=== PATIENT | male | born 1985 | race Two or more races ===

== ENCOUNTER 2019-01-03 20:31 | Emergency (ER) | payer SELFPAY ==
[~2019-01-03] VITALS: Ht 170.2 cm; Wt 72.7 kg
[2019-01-03 21:17] VITALS: BP 141/87
[2019-01-03 21:34] LABS: GLUCOSE,POINT OF CARE 101 MG/DL (70-110)
== END 2019-01-04 02:19 | disposition left against medical advice (07) ==
LOC: EMS 20:32
DX: R10.9 Unspecified abdominal pain (principal); Z53.21 Procedure and treatment not carried out due to patient leaving prior to being seen by health care provider

== ENCOUNTER 2022-02-13 08:37 | Emergency (ER) | payer OTHER ==
[~2022-02-13] VITALS: Ht 170.2 cm; Wt 70.5 kg
[2022-02-13 12:00] VITALS: BP 118/82
== END 2022-02-13 13:13 ==
LOC: EMS 08:38
DX: R10.30 Lower abdominal pain, unspecified (principal); Z13.30 Encounter for screening examination for mental health and behavioral disorders, unspecified; F10.20 Alcohol dependence, uncomplicated; F12.90 Cannabis use, unspecified, uncomplicated; F15.10 Other stimulant abuse, uncomplicated; F17.210 Nicotine dependence, cigarettes, uncomplicated; Z88.5 Allergy status to narcotic agent
CPT/HCPCS: 74176; 99284; Z7502